=== PATIENT | male | born 1955 | race Caucasian/White ===

== ENCOUNTER 2017-08-31 10:35 | Observation (INO) | payer OTHER ==
[2017-08-31] MEDS ORDERED: Sodium Chloride 0.9% 10 ML Syringe FLUSH PRN ×2 (10:56→11:01)
[2017-08-31] MEDS ORDERED: Ondansetron 4 MG/2 ML SDV IVPUSH ONE (11:02)
[2017-08-31] MEDS ORDERED: Pantoprazole 40 MG Vial IVPUSH ONE (11:03)
--- NOTE | 2017-08-31 11:13 | EDM.PDOC ---
ED HPI GENERAL MEDICAL PROBLEM - General Chief Complaint: Abdominal Pain Stated Complaint: abd pain Time Seen by Provider: 08/31/17 10:45 Source of Information: Reports: Patient History Limitations: Reports: No Limitations - History of Present Illness INITIAL COMMENTS - FREE TEXT/NARRATIVE: Patient is a 62-year-old gentleman who presents to the ER with chief complaint of left lower quadrant pain started about 2 days ago states that the pain waxes and wanes, right now, feels pretty good denies pain on urination no fever complains of dry heaves. Also complains of generalized aches and pains Onset: Gradual Duration: Day(s):, Waxing/Waning Location: Reports: Abdomen Quality: Reports: Ache Worsens with: Reports: Eating Context: Reports: Sick Contact Associated Symptoms: Reports: No Other Symptoms, Other (Generalized body aches) Left Middle Abdomen Pain Score (Numeric/FACES): 5 - Related Data Allergies Allergy/AdvReac Type Severity Reaction Status Date / Time tuberculin, purified protein Allergy UNKNOWN Verified 08/31/17 11:02 deriva Home Meds: Home Meds Acetaminophen [Tylenol Extra Strength] 1,000 mg PO Q6HR PRN 11/13/13 [History] Calcium Carbonate [Tums] 3 tab PO ASDIRECTED PRN 11/13/13 [History] Cholecalciferol (Vitamin D3) [Vitamin D3] 2,000 unit PO DAILY 11/13/13 [History] Docusate Sodium [Colace] 100 mg PO DAILY PRN 11/13/13 [History] Folic Acid 1 mg PO QAM 11/13/13 [History] Gabapentin [Neurontin] 300 mg PO 1600 11/13/13 [History] Hydrochlorothiazide 25 mg PO DAILY 11/13/13 [History] Levothyroxine 25 mcg PO DAILY 11/13/13 [History] Lisinopril [Prinivil] 40 mg PO DAILY 11/13/13 [History] Loperamide HCl [Ultra A-D] 1 - 2 cap PO ASDIRECTED PRN 11/13/13 [History] [place]-3 Fatty Acids [[place]-3] 1,000 mg PO Q12H 11/13/13 [History] Omeprazole [Prilosec] 20 mg PO DAILY 11/13/13 [History] Sertraline [Zoloft] 100 mg PO DAILY 11/13/13 [History] Thiamine [Vitamin B-1] 100 mg PO DAILY 11/13/13 [History] amLODIPine [Norvasc] 5 mg PO BEDTIME 11/13/13 [History] atorvaSTATin [Lipitor] 10 mg PO BEDTIME 11/13/13 [History] glipiZIDE [Glucotrol] 10 mg PO BEDTIME 11/13/13 [History] guaiFENesin/Dextromethorphan [Tussin Dm Syrup] 10 ml PO ASDIRECTED PRN 11/13/13 [History] metFORMIN [Glucophage] 1,000 mg PO 08,16 11/13/13 [History] Bimatoprost [LUMIGAN 0.01% Ophth Soln] 1 drop EYEBOTH QPM 02/19/15 [History] Budesonide/Formoterol [Symbicort 160-4.5 MCG] 1 puff INH Q12H 02/19/15 [History] Dorzolamide [Trusopt 2% Ophth Soln] 1 drop EYEBOTH Q12H 02/19/15 [History] Atenolol [Tenormin] 25 mg PO Q12H 08/31/17 [History] Cetirizine [ZyrTEC] 10 mg PO BEDTIME 08/31/17 [History] Fenofibrate,Micronized [Fenofibrate] 200 mg PO BEDTIME 08/31/17 [History] Gabapentin [Neurontin] 600 mg PO 08,20 08/31/17 [History] Hydrocortisone [Hydrocortisone 1% Crm] 1 applic TOP BID PRN 08/31/17 [History] Insulin Glargine,Hum.Rec.Anlog [Lantus Solostar] 18 unit SQ DAILY 08/31/17 [ History] Insulin Glargine,Hum.Rec.Anlog [Lantus Solostar] 68 unit SQ BEDTIME 08/31/17 [ History] Mupirocin Oint [Bactroban Oint] 1 applic TOP BID PRN 08/31/17 [History] Petrolatum,White [Petroleum Jelly] 1 applic NASBOTH ASDIRECTED PRN 08/31/17 [ History] Social & Family History - Tobacco Use Smoking Status *Q: Current Every Day Smoker Years of Tobacco use: 45 Used Tobacco, but Quit: No Month Tobacco Last Used: UNKNOWN Second Hand Smoke Exposure: No - Alcohol Use Days Per Week of Alcohol Use: 0 (History of significant alcohol abuse) - Recreational Drug Use Recreational Drug Use: No Drug Use in Last 12 Months: Yes Recreational Drug Type: Reports: Vicodin (Chronic hydrocodone use) - Living Situation & Occupation Living situation: Reports: Extended Care Facility Occupation: Retired ED ROS GENERAL - Review of Systems Review Of Systems: See Below Constitutional: Reports: Weakness ED EXAM, GI/ABD - Physical Exam Exam: See Below Course - Vital Signs Last Recorded V/S: Last Vital Signs Temp 97.9 F 08/31/17 10:35 Pulse 84 08/31/17 10:35 Resp 22 H 08/31/17 10:35 BP 155/90 H 08/31/17 10:35 Pulse Ox 95 08/31/17 10:35 - Orders/Labs/Meds Orders: Active Orders 24 hr Category Date Time Status Abdomen Pelvis w Cont [CT] Stat Exams 08/31/17 11:03 Taken Sodium Chloride 0.9% [Saline Flush] Med 08/31/17 10:56 Active 10 ml FLUSH ASDIRECTED PRN Sodium Chloride 0.9% [Saline Flush] Med 08/31/17 11:01 Active 10 ml FLUSH ASDIRECTED PRN Saline Lock Insert [OM.PC] Routine Oth 08/31/17 10:56 Ordered Saline Lock Insert [OM.PC] Stat Oth 08/31/17 11:01 Ordered Medication Orders Sodium Chloride (Normal Saline) 1,000 mls @ 150 mls/hr IV ASDIRECTED KATHLEEN Last Admin: 08/31/17 13:43 Dose: 150 mls/hr Sodium Chloride (Saline Flush) 10 ml FLUSH ASDIRECTED PRN PRN Reason: Keep Vein Open Last Admin: 08/31/17 11:09 Dose: 10 ml Sodium Chloride (Saline Flush) 10 ml FLUSH ASDIRECTED PRN PRN Reason: Keep Vein Open Labs: Laboratory Tests 08/31/17 08/31/17 08/31/17 Range/Units 10:45 10:50 10:50 WBC 10.0 (4.0-10.2) K/uL RBC 4.92 (4.33-5.41) M/uL Hgb 17.4 H D (13.1-16.8) g/dL Hct 41.6 (39.0-49.0) % MCV 84.6 D (84.0-98.0) fL MCH 35.4 H (28.2-33.3) pg MCHC 41.8 H (31.7-36.0) g/dL RDW 13.9 (11.2-14.1) % Plt Count 200 (150-350) K/uL Neut % (Auto) 77.3 (45.0-80.0) % Lymph % (Auto) 7.3 L (10.0-50.0) % [place] % (Auto) 13.9 (2.0-14.0) % Eos % (Auto) 1.2 (0.0-5.0) % Baso % (Auto) 0.3 (0.0-2.0) % Neut # (Auto) 7.76 H (1.40-7.00) K/uL Lymph # (Auto) 0.73 (0.50-3.50) K/uL [place] # (Auto) 1.39 H (0.00-1.00) K/uL Eos # (Auto) 0.12 (0.00-0.50) K/uL Baso # (Auto) 0.03 (0.00-0.20) K/uL Sodium 132 L (136-145) mmol/L Potassium 4.1 (3.5-5.1) mmol/L Chloride 96 L (98-107) mmol/L Carbon Dioxide 19.7 L (21.0-32.0) mmol/L BUN 16 (7-18) mg/dL Creatinine 0.71 (0.51-1.17) mg/dL Est Cr Clr Drug Dosing 84.59 mL/min Estimated GFR (MDRD) > 60 mL/min Glucose 363 H* (74-106) mg/dL Calcium 9.4 (8.5-10.1) mg/dL Amylase 47 (25-115) U/L Lipase 682 H (73-393) U/L Specimen Type Urincc Urine Color Yellow Urine Appearance Clear Urine pH 6.5 (5.0-9.0) Ur Specific [place] 1.015 (1.005-1.030) Urine Protein Negative (NEGATIVE) mg/dL Urine Glucose (UA) 500 H (NEGATIVE) mg/dL Urine Ketones Negative (NEGATIVE) mg/dL Urine Occult Blood Trace-intact H (NEGATIVE) Urine Nitrite Negative (NEGATIVE) Urine Bilirubin Negative (NEGATIVE) Urine Urobilinogen 0.2 (0.2-1.0) E.U./dL Ur Leukocyte Esterase Negative (NEGATIVE) Urine RBC 0-5 /HPF Urine WBC 0-5 /HPF Ur Epithelial Cells Rare /LPF Urine Bacteria Rare (NONE TO FEW) /HPF Meds: Medications Generic Name Dose Route Start Last Admin Trade Name Freq PRN Reason Stop Dose Admin Sodium Chloride 1,000 mls @ 150 mls/hr 08/31/17 13:45 08/31/17 13:43 Normal Saline IV 150 mls/hr ASDIRECTED KATHLEEN Administration Sodium Chloride 10 ml 08/31/17 10:56 08/31/17 11:09 Saline Flush FLUSH 10 ml ASDIRECTED PRN Administration Keep Vein Open Sodium Chloride 10 ml 08/31/17 11:01 Saline Flush FLUSH ASDIRECTED PRN Keep Vein Open Discontinued Medications Generic Name Dose Route Start Last Admin Trade Name Freq PRN Reason Stop Dose Admin Iopamidol 100 ml 08/31/17 12:30 Isovue-370 (76%) IVPUSH 08/31/17 12:31 ONETIME ONE Ondansetron HCl 4 mg 08/31/17 11:02 08/31/17 11:08 Zofran IVPUSH 08/31/17 11:03 4 mg ONETIME ONE Administration Pantoprazole Sodium 40 mg 08/31/17 11:03 08/31/17 11:08 Protonix Iv IVPUSH 08/31/17 11:04 40 mg ONETIME ONE Administration Departure - Departure Time of Disposition: 14:09 Disposition: Refer to Observation Condition: Fair Clinical Impression: Pancreatitis, Abdominal pain - Discharge Information - Problem List & Annotations (1) IDDM (insulin dependent diabetes mellitus) SNOMED Code(s): 57008632 Code(s): E11.9 - TYPE 2 DIABETES MELLITUS WITHOUT COMPLICATIONS; Z79.4 - JAIL (CURRENT) USE OF INSULIN Status: Acute Priority: Medium Current Visit: No Annotation/Comment:: Blood sugars are related secondary to pancreatitis will control with insulin (2) Pancreatitis SNOMED Code(s): 54187760 Code(s): K85.9 - ACUTE PANCREATITIS, UNSPECIFIED * DO NOT USE * Status: Acute Priority: High Current Visit: No Onset Date: 02/15/15 Annotation/ Comment:: Patient's lipase elevated will admit for treatment of pancreatitis IV fluids will be provided clear liquid diet and pain control as needed discussed with Dr. Kim at the [facility] agreed that which her keep the patient for short stay no antibiotics at this time. (3) Hyponatremia SNOMED Code(s): 37974995 Code(s): E87.1 - HYPO-OSMOLALITY AND HYPONATREMIA Status: Acute Priority : High Current Visit: No Annotation/Comment:: Aggressively but carefully rehydrate patient with IV lactated Ringer's with IV bolus already given in the emergency room - Problem List Review Problem List Initiated/Reviewed/Updated: Yes - My Orders Last 24 Hours: My Active Orders 08/31/17 10:56 Sodium Chloride 0.9% [Saline Flush] 10 ml FLUSH ASDIRECTED PRN Saline Lock Insert [OM.PC] Routine 08/31/17 11:01 Sodium Chloride 0.9% [Saline Flush] 10 ml FLUSH ASDIRECTED PRN Saline Lock Insert [OM.PC] Stat 08/31/17 11:03 Abdomen Pelvis w Cont [CT] Stat - Assessment/Plan Admission H&P: Please use this note as an admission H&P Last 24 Hours: My Active Orders 08/31/17 10:56 Sodium Chloride 0.9% [Saline Flush] 10 ml FLUSH ASDIRECTED PRN Saline Lock Insert [OM.PC] Routine 08/31/17 11:01 Sodium Chloride 0.9% [Saline Flush] 10 ml FLUSH ASDIRECTED PRN Saline Lock Insert [OM.PC] Stat 08/31/17 11:03 Abdomen Pelvis w Cont [CT] Stat Plan: Patient will be admitted to hospital for 24-hour observation
[2017-08-31 11:17] LABS: CHLORIDE,CL 96 mmol/L (98-107); SODIUM,NA 132 mmol/L (136-145)
[2017-08-31] MEDS ORDERED: Iopamidol 755 Mg/ML 100 ML Bottle IVPUSH ONE (12:30)
[2017-08-31] MEDS: Sodium Chloride 0.9% 1,000 ML IV SCH ×2 (13:43→19:49)
[2017-08-31] MEDS ORDERED: Calcium Carbonate 500 MG Tab.Chew PO PRN (14:02)
[2017-08-31] MEDS ORDERED: HYDROCORTISONE TOP PRN (14:02)
[2017-08-31] MEDS ORDERED: Non-Formulary Medication 1 Each (Budesonide/Formoterol 1 PUFF) INH SCH (14:15)
[2017-08-31] MEDS: Acetaminophen 500 MG Tab PO PRN ×2 (15:04→21:07)
[2017-08-31] MEDS ORDERED: Non-Formulary Medication 1 Each (Bimatoprost 1 DROP) EYEBOTH SCH (18:00)
[2017-08-31] MEDS ORDERED: Loperamide 2 MG Tab PO ONE (19:32)
[2017-08-31] MEDS ORDERED: Loperamide 2 MG Tab PO PRN (19:33)
[2017-08-31] MEDS: DORZOLAMIDE 2% EYEBOTH SCH ×2 (19:45→19:47)
[2017-08-31] MEDS: BUDESONIDE INH SCH (19:46)
[2017-08-31] MEDS: FORMOTEROL INH SCH (19:46)
[2017-08-31] MEDS ORDERED: LUMIGAN EYE EYEBOTH SCH (20:00)
[2017-08-31] MEDS ORDERED: Cetirizine 10 MG Tab PO SCH (20:00)
[2017-08-31] MEDS ORDERED: INSULIN GLARGINE HUM REC ANLOG SQ SCH (20:00)
[2017-09-01] MEDS: Sodium Chloride 0.9% 1,000 ML IV SCH (02:30)
[2017-09-01] MEDS: BUDESONIDE INH SCH (07:57)
[2017-09-01] MEDS: FORMOTEROL INH SCH (07:57)
[2017-09-01] MEDS: DORZOLAMIDE 2% EYEBOTH SCH (07:58)
[2017-09-01] MEDS ORDERED: INSULIN GLARGINE HUM REC ANLOG 18 UNIT SQ SCH (08:00)
[2017-09-01] MEDS ORDERED: Omeprazole 20 MG Cap.CR PO SCH (08:00)
[2017-09-01] MEDS ORDERED: Levothyroxine 25 MCG Tab PO SCH (08:00)
[2017-09-01 11:21] VITALS: BP 147/87
--- NOTE | 2017-09-01 12:15 | PCM.DCSUM1 ---
Discharge Summary - Hospital Course Free Text/Narrative:: Patient is a 62-year-old who was admitted with acute pancreatitis IV fluids given patient tolerating pain well eating well we'll send him home today [facility] - Discharge Data Discharge Date: 09/01/17 Discharge Disposition: DC/Tfer to [facility] Condition: Good - Discharge Diagnosis/Problem(s) (1) IDDM (insulin dependent diabetes mellitus) SNOMED Code(s): 93435191 ICD Code: E11.9 - TYPE 2 DIABETES MELLITUS WITHOUT COMPLICATIONS; Z79.4 - HALFWAY (CURRENT) USE OF INSULIN Status: Acute Priority: Medium Current Visit: No Problem Details: Blood sugars are related secondary to pancreatitis will control with insulin (2) Pancreatitis SNOMED Code(s): 19561658 ICD Code: K85.9 - ACUTE PANCREATITIS, UNSPECIFIED * DO NOT USE * Status: Acute Priority: High Current Visit: Yes Onset Date: 02/15/15 Problem Details: Patient seen and evaluated diagnosed with pancreatitis doing great we' ll send him home he is to continue all his medications as before (3) Hyponatremia SNOMED Code(s): 76344352 ICD Code: E87.1 - HYPO-OSMOLALITY AND HYPONATREMIA Status: Acute Priority : High Current Visit: No Problem Details: Aggressively but carefully rehydrate patient with IV lactated Ringer's with IV bolus already given in the emergency room - Discharge Plan Home Medications: Home Meds Acetaminophen [Tylenol Extra Strength] 1,000 mg PO Q6HR PRN 11/13/13 [History] Calcium Carbonate [Tums] 3 tab PO ASDIRECTED PRN 11/13/13 [History] Cholecalciferol (Vitamin D3) [Vitamin D3] 2,000 unit PO DAILY 11/13/13 [History] Docusate Sodium [Colace] 100 mg PO DAILY PRN 11/13/13 [History] Folic Acid 1 mg PO QAM 11/13/13 [History] Gabapentin [Neurontin] 300 mg PO 1600 11/13/13 [History] Hydrochlorothiazide 25 mg PO DAILY 11/13/13 [History] Levothyroxine 25 mcg PO DAILY 11/13/13 [History] Lisinopril [Prinivil] 40 mg PO DAILY 11/13/13 [History] Loperamide HCl [Ultra A-D] 1 - 2 cap PO ASDIRECTED PRN 11/13/13 [History] [place]-3 Fatty Acids [[place]-3] 1,000 mg PO Q12H 11/13/13 [History] Omeprazole [Prilosec] 20 mg PO DAILY 11/13/13 [History] Sertraline [Zoloft] 100 mg PO DAILY 11/13/13 [History] Thiamine [Vitamin B-1] 100 mg PO DAILY 11/13/13 [History] amLODIPine [Norvasc] 5 mg PO BEDTIME 11/13/13 [History] atorvaSTATin [Lipitor] 10 mg PO BEDTIME 11/13/13 [History] glipiZIDE [Glucotrol] 10 mg PO BEDTIME 11/13/13 [History] guaiFENesin/Dextromethorphan [Tussin Dm Syrup] 10 ml PO ASDIRECTED PRN 11/13/13 [History] metFORMIN [Glucophage] 1,000 mg PO 08,16 11/13/13 [History] Bimatoprost [LUMIGAN 0.01% Ophth Soln] 1 drop EYEBOTH BEDTIME 02/19/15 [History] Budesonide/Formoterol [Symbicort 160-4.5 MCG] 1 puff INH Q12H 02/19/15 [History] Dorzolamide [Trusopt 2% Ophth Soln] 1 drop EYEBOTH Q12H 02/19/15 [History] Atenolol [Tenormin] 25 mg PO Q12H 08/31/17 [History] Cetirizine [ZyrTEC] 10 mg PO BEDTIME 08/31/17 [History] Fenofibrate,Micronized [Fenofibrate] 200 mg PO BEDTIME 08/31/17 [History] Gabapentin [Neurontin] 600 mg PO 08,20 08/31/17 [History] Hydrocortisone [Hydrocortisone 1% Crm] 1 applic TOP BID PRN 08/31/17 [History] Insulin Glargine,Hum.Rec.Anlog [Lantus Solostar] 18 unit SQ DAILY 08/31/17 [ History] Insulin Glargine,Hum.Rec.Anlog [Lantus Solostar] 68 unit SQ BEDTIME 08/31/17 [ History] Mupirocin Oint [Bactroban Oint] 1 applic TOP BID PRN 08/31/17 [History] Petrolatum,White [Petroleum Jelly] 1 applic NASBOTH ASDIRECTED PRN 08/31/17 [ History] Patient Handouts: Lipase Test, Acute Pancreatitis Forms: ED Department Discharge Referrals: Annalee Livingston PA [Primary Care Provider] - - General Info Date of Service: 09/01/17 Functional Status: Reports: Pain Controlled - Review of Systems General: Reports: No Symptoms HEENT: Reports: No Symptoms Pulmonary: Reports: No Symptoms Cardiovascular: Reports: No Symptoms Gastrointestinal: Reports: Constipation Genitourinary: Reports: No Symptoms Musculoskeletal: Reports: No Symptoms Skin: Reports: No Symptoms Neurological: Reports: No Symptoms Psychiatric: Reports: No Symptoms - Patient Data Vitals - Most Recent: Last Vital Signs Temp 97.2 F 09/01/17 11:20 Pulse 94 09/01/17 11:20 Resp 16 09/01/17 04:00 BP 147/87 H 09/01/17 11:20 Pulse Ox 92 L 09/01/17 11:20 Weight - Most Recent: 212 lb 4.8 oz I&O - Last 24 hours: Intake & Output 08/31/17 09/01/17 09/01/17 22:59 06:59 14:59 Intake Total 2875 710 Output Total 1200 1250 Balance -1200 1625 710 Lab Results - Last 24 hrs: Laboratory Results - last 24 hr 08/31/17 08/31/17 09/01/17 Range/Units 16:59 19:51 07:54 POC Glucose 195 H 277 H* 188 H (65-110) mg/dl 09/01/17 Range/Units 11:20 POC Glucose 279 H* (65-110) mg/dl Med Orders - Current: Current Medications Acetaminophen (Tylenol Extra Strength) 1,000 mg PO Q6HR PRN PRN Reason: Pain Last Admin: 08/31/17 21:07 Dose: 1,000 mg Calcium Carbonate/Glycine (Tums) 0 mg PO ASDIRECTED PRN PRN Reason: Heartburn Cetirizine HCl (Zyrtec) 10 mg PO BEDTIME KATHLEEN Last Admin: 08/31/17 19:46 Dose: 10 mg Dorzolamide HCl (Trusopt 2% Ophth Soln) 0 ml EYEBOTH BID@0800,2000 KATHLEEN Last Admin: 09/01/17 07:58 Dose: 1 drop Levothyroxine Sodium (Levothyroxine) 25 mcg PO DAILY [facility] Last Admin: 09/01/17 08:02 Dose: 25 mcg Loperamide HCl (Imodium Ad) 2 mg PO Q6H PRN PRN Reason: Diarrhea Non-Formulary Medication (Hydrocortisone [Hydrocortisone 1% Crm]) 1 applic TOP BID PRN PRN Reason: Itching Patients Own Med ( Insulin Glargine,Hum .Rec.Anlog 18 Unit) 18 unit SQ DAILY [facility] Last Admin: 09/01/17 07:56 Dose: 18 unit Patients Own Med ( Insulin Glargine,Hum .Rec.Anlog 68 Unit) 68 unit SQ BEDTIME [facility] Last Admin: 08/31/17 19:51 Dose: 68 unit Patients Own Med( Budesonide/Formoterol Symbicort 160/4.5 Mg 1 puff INH Q12H [facility] Last Admin: 09/01/17 07:57 Dose: 1 puff Patients Own Med ([place] Eye Drops) 1 drop EYEBOTH BEDTIME [facility] Last Admin: 08/31/17 19:47 Dose: 1 drop Omeprazole (Omeprazole) 20 mg PO DAILY [facility] Last Admin: 09/01/17 08:02 Dose: 20 mg Sodium Chloride (Saline Flush) 10 ml FLUSH ASDIRECTED PRN PRN Reason: Keep Vein Open Last Admin: 08/31/17 11:09 Dose: 10 ml Sodium Chloride (Saline Flush) 10 ml FLUSH ASDIRECTED PRN PRN Reason: Keep Vein Open Discontinued Medications Sodium Chloride (Normal Saline) 1,000 mls @ 150 mls/hr IV ASDIRECTED [facility] Last Admin: 09/01/17 02:30 Dose: 150 mls/hr Iopamidol (Isovue-370 (76%)) 100 ml IVPUSH ONETIME ONE Stop: 08/31/17 12:31 Last Admin: 08/31/17 19:50 Dose: Not Given Loperamide HCl (Imodium Ad) 4 mg PO ONETIME ONE Stop: 08/31/17 19:33 Last Admin: 08/31/17 19:46 Dose: 4 mg Non-Formulary Medication (Bimatoprost) 1 drop EYEBOTH QPM [facility] Non-Formulary Medication (Budesonide/Formoterol) 1 puff INH Q12H KATHLEEN Ondansetron HCl (Zofran) 4 mg IVPUSH ONETIME ONE Stop: 08/31/17 11:03 Last Admin: 08/31/17 11:08 Dose: 4 mg Pantoprazole Sodium (Protonix Iv) 40 mg IVPUSH ONETIME ONE Stop: 08/31/17 11:04 Last Admin: 08/31/17 11:08 Dose: 40 mg - Exam General: Reports: Alert, Oriented HEENT: Reports: Pupils Equal, Pupils Reactive, EOMI, Mucous Membr. Moist/[place] Neck: Reports: Supple Lungs: Reports: Clear to Auscultation, Normal Respiratory Effort Cardiovascular: Reports: Regular Rate, Regular Rhythm GI/Abdominal Exam: Normal Bowel Sounds, Soft, Non-Tender, No Organomegaly, No Distention, No Abnormal Bruit, No Mass, Pelvis Stable (Male) Exam: No Hernia, Normal Inspection, Normal Prostate, Circumcised Rectal (Males) Exam: Deferred Back Exam: Reports: Normal Inspection, Decreased Range of Motion Extremities: Normal Inspection, Normal Range of Motion, Non-Tender, No Pedal Edema, Normal Capillary Refill Skin: Reports: Warm, Dry, Intact Neurological: Reports: No New Focal Deficit *Q Meaningful Use (DIS) - VTE *Q VTE Criteria *Q: - Stroke *Q Stroke Criteria *Q: - AMI *Q AMI Criteria *Q:
== END 2017-09-01 13:05 ==
LOC: LL.ED 10:35 → LL.MS 13:30
PROVIDERS: ADMIT Family Medicine; ATTEND Family Medicine
DX: K85.90 Acute pancreatitis without necrosis or infection, unspecified (principal); K86.1 Other chronic pancreatitis; E87.1 Hypo-osmolality and hyponatremia; E11.9 Type 2 diabetes mellitus without complications; F17.210 Nicotine dependence, cigarettes, uncomplicated; Z79.4 Long term (current) use of insulin; Z79.899 Other long term (current) drug therapy; Z88.8 Allergy status to other drugs, medicaments and biological substances
CPT/HCPCS: 36415; 74177; 80048; 81001; 82150; 82962; 83690; 85025; 96374; 96375; 99285; A9270; C9113; J2405; J7030; J7050; Q9967; 96361; G0378

== ENCOUNTER 2018-04-25 00:17 | Emergency (ER) | payer OTHER ==
--- NOTE | 2018-04-25 00:37 | EDM.PDOC ---
ED HPI GENERAL MEDICAL PROBLEM - General Chief Complaint: Abdominal Pain Stated Complaint: ABD pain Time Seen by Provider: 04/25/18 00:30 Source of Information: Reports: Patient, Long Term Records, Old Records ([facility] chart/EMR) History Limitations: Reports: Altered Mental Status - History of Present Illness INITIAL COMMENTS - FREE TEXT/NARRATIVE: The patient was brought to the emergency room via transport vehicle from [facility] in [place] for evaluation of bilateral upper quadrant abdominal pain associated with 3 loose stools this evening and about 12 episodes of mild emesis/dry heaves with symptoms starting at about 20:00 hours this evening after he took his evening medications. His symptoms are similar to his previous episodes of recurrent pancreatitis as below. He did not take any additional medications for his current symptoms. No recent history of heartburn , constipation, hematemesis, melena, gross hematochezia, or any food intolerance , including fatty foods, etc.. He denies any colic, gross hematuria, or other UTI symptoms. The patient denies any chest pain/pressure, heart flutter, dizziness, orthostasis, orthopnea, diaphoresis, paresthesias, recent decreased exercise tolerance, or any other anginal-type symptoms. The patient also denies any recent fever, cough, wheezing, dyspnea, etc.. No history of recent headaches , visual changes, diplopia, change in mental status, or other change in neurological status. He rates his pain ranging between 4-8/10. Patient is a somewhat poor historian. Onset: Sudden Onset Date: 04/24/18 Onset Time: 20:00 Duration: Constant, Getting Worse Location: Reports: Abdomen. Denies: Head, Face, Neck, Chest, Back, Pelvis, Upper Extremity, Left, Upper Extremity, Right, Radiates to Quality: Reports: Ache, Same as Previous Episode Severity: Moderate Improves with: Reports: None Worsens with: Reports: None Context: Reports: Other (As above). Denies: Sick Contact Associated Symptoms: Reports: Nausea/Vomiting. 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: Other (see below) (None other than his evening medications as above) Bilateral Upper Abdomen Pain Score (Numeric/FACES): 8 - Related Data Allergies Allergy/AdvReac Type Severity Reaction Status Date / Time tuberculin, purified protein Allergy Redness Verified 04/25/18 00:32 deriva Home Meds: Home Meds Acetaminophen [Tylenol Extra Strength] 1,000 mg PO BID@08,20 11/13/13 [History] Calcium Carbonate [Tums] 2 tab PO ASDIRECTED PRN 11/13/13 [History] Cholecalciferol (Vitamin D3) [Vitamin D3] 2,000 unit PO DAILY 11/13/13 [History] Docusate Sodium [Colace] 100 mg PO DAILY PRN 11/13/13 [History] Folic Acid 1 mg PO QAM 11/13/13 [History] Gabapentin [Neurontin] 300 mg PO DAILY@1600 11/13/13 [History] Hydrochlorothiazide 25 mg PO DAILY 11/13/13 [History] Levothyroxine 25 mcg PO DAILY 11/13/13 [History] Lisinopril [Prinivil] 40 mg PO DAILY 11/13/13 [History] Loperamide HCl [Ultra A-D] 1 - 2 cap PO ASDIRECTED PRN 11/13/13 [History] Omeprazole [Prilosec] 20 mg PO DAILY 11/13/13 [History] Sertraline [Zoloft] 100 mg PO DAILY 11/13/13 [History] Thiamine [Vitamin B-1] 100 mg PO DAILY 11/13/13 [History] amLODIPine [Norvasc] 5 mg PO BEDTIME 11/13/13 [History] atorvaSTATin [Lipitor] 10 mg PO BEDTIME 11/13/13 [History] glipiZIDE [Glucotrol] 10 mg PO BEDTIME 11/13/13 [History] guaiFENesin/Dextromethorphan [Tussin Dm Syrup] 10 ml PO ASDIRECTED PRN 11/13/13 [History] metFORMIN [Glucophage] 1,000 mg PO 08,16 11/13/13 [History] Bimatoprost [LUMIGAN 0.01% Ophth Soln] 1 drop EYEBOTH BEDTIME 02/19/15 [History] Budesonide/Formoterol [Symbicort 160-4.5 MCG] 1 puff INH Q12H 02/19/15 [History] Dorzolamide [Trusopt 2% Ophth Soln] 1 drop EYEBOTH Q12H 02/19/15 [History] Atenolol [Tenormin] 25 mg PO Q12H 08/31/17 [History] Cetirizine [ZyrTEC] 10 mg PO BEDTIME 08/31/17 [History] Fenofibrate,Micronized [Fenofibrate] 200 mg PO BEDTIME 08/31/17 [History] Gabapentin [Neurontin] 600 mg PO BID@08,20 08/31/17 [History] Hydrocortisone [Hydrocortisone 1% Crm] 1 applic TOP BID PRN 08/31/17 [History] Insulin Glargine,Hum.Rec.Anlog [Lantus Solostar] 18 unit SQ DAILY 08/31/17 [ History] Insulin Glargine,Hum.Rec.Anlog [Lantus Solostar] 72 unit SQ BEDTIME 08/31/17 [ History] Mupirocin Oint [Bactroban Oint] 1 applic TOP BID PRN 08/31/17 [History] Petrolatum,White [Petroleum Jelly] 1 applic NASBOTH ASDIRECTED PRN 08/31/17 [ History] Acetaminophen [Tylenol Extra Strength] 1,000 mg PO DAILY PRN 04/25/18 [History] Albuterol/Ipratropium [DuoNeb 3.0-0.5 MG/3 ML] 1 vial INH Q4H PRN 04/25/18 [ History] Potassium Chloride [Klor-Con M20] 20 meq PO BID@08,20 04/25/18 [History] Past Medical History HEENT History: Reports: Allergic Rhinitis, Cataract, Glaucoma, Hard of Hearing, Impaired Vision, Other (See Below). Denies: Macular Degeneration, Retinal Detachment Other HEENT History: Patient wears bifocals. Mild bilateral presbycusis with no current therapy. Nasal septum deviation. Cardiovascular History: Reports: Aneurysm, High Cholesterol, Hypertension, PVD, Other (See Below). Denies: Afib, Arrhythmia, Blood Clots/VTE/DVT, CAD, Heart Failure, GA, Syncope Other Cardiovascular History: Thoracic aortic aneurysm Respiratory History: Reports: Bronchitis, Recurrent, COPD, Pulmonary Fibrosis, Sleep Apnea, Other (See Below). Denies: Asthma, PE, Pneumothorax Other Respiratory History: No current CPAP use. Gastrointestinal History: Reports: Bowel Obstruction, Chronic Constipation, Chronic Diarrhea, Diverticulosis, GERD, Hemorrhoids, Hiatal Hernia, Pancreatitis , Other (See Below). Denies: Celiac Disease, Cholelithiasis, Cirrhosis, Colon Polyp, GI Bleed, Hepatitis, Inflammatory Bowel Disease, Irritable Bowel Syndrome , PUD Other Gastrointestinal History: History of recurrent pancreatitis with pancreatic pseudocyst with last episodes on 08/31/17 and 02/16/15. Fatty liver with secondary LFTs elevation. Gilbert's syndrome. History of recurrent abdominal ileus. Multiple ventral abdominal fatty hernias. Splenic infarction. Dysphagia. Genitourinary History: Reports: BPH, Chronic Renal Insuffiency, Diabetic Nephropathy, Other (See Below). Denies: Acute Renal Failure, Renal Calculus, STD, Urinary Incontinence, UTI, Recurrent Other Genitourinary History: Bladder diverticuli by CT scan. Right renal cysts by ultrasound in 2017. Musculoskeletal History: Reports: Arthritis, Back Pain, Chronic, Gout, Osteoarthritis, Other (See Below). Denies: Amputation, Fracture, RA, SLE Other Musculoskeletal History: Scoliosis Neurological History: Reports: Neuropathy, Diabetic, Neuropathy, Peripheral. Denies: Alzheimers Disease, Cerebral Aneurysms, Concussion, CVA, Headaches, Chronic, Head Trauma, Migraines, MS, Parkinson's, Seizure, TIA Psychiatric History: Reports: Addiction, Anxiety, Depression, Emotional Problems , Psych Hospitalization(s), Suicide Attempt, Suicidal Ideation, Other (See Below ). Denies: Abuse, Victim of, ADD, ADHD, Alzheimers Disease, Dementia, PTSD Other Psychiatric History: transvestic fetishism, history ETOH alcohol use between age 17 and 46 with previous multiple alcohol treatments Endocrine/Metabolic History: Reports: Diabetes, Type II, Hypothyroidism, IDDM, Obesity/BMI 30+, Vitamin D Deficiency, Other (See Below). Denies: Diabetes, Type I, Diabetes Mellitus, Type 3c Other Endocrine/Metabolic History: Hyponatremia and hypokalemia. Hematologic History: Reports: Anemia, Folic Acid. Denies: Blood Transfusion(s) , Iron Deficiency Immunologic History: Reports: None. Denies: AIDS, HIV, SLE Oncologic (Cancer) History: Denies: Basal Cell Carcinoma, Colon, Hodgkin's Lymphoma, Leukemia, Lymphoma, Malignant Melanoma, Non-Hodgkin's Lymphoma, Prostate, Squamous Cell Carcinoma Dermatologic History: Reports: Venous Stasis Dermatitis, Other (See Below). Denies: Eczema, Psoriasis Other Dermatologic History: Lichen Simplex Chronicus, follicular disorder. Actinic keratosis. - Infectious Disease History Infectious Disease History: Reports: None. Denies: C-Difficile, Chicken Pox, Measles, Meningitis, Mononucleosis, MRSA, Mumps, Rheumatic Fever, Rubella, Scarlet Fever, Shingles, VRE - Past Surgical History Head Surgeries/Procedures: Reports: None HEENT Surgical History: Reports: Cataract Surgery, LASIK, Oral Surgery, Other ( See Below). Denies: Adenoidectomy, Eye Surgery, Laser Surgery, Myringotomy w Tube(s), Naso-Sinus Surgery, Tonsillectomy Other HEENT Surgeries/Procedures: bilateral cataract surgery in about 2015 with patient stating that he had LASIK surgery concurrently despite separate cataract procedures? Cardiovascular Surgical History: Reports: None. Denies: Varicose Respiratory Surgical History: Reports: None. Denies: Thoracentesis GI Surgical History: Reports: Colonoscopy, EGD, Hernia, Inguinal, Other (See Below). Denies: Appendectomy, Cholecystectomy, Hernia, Abdominal, Hernia Repair /Other Other GI Surgeries/Procedures: Colonoscopy and EGD in about 2012. Umbilical hernia repair in about 1999. Male Surgical History: Reports: None. Denies: Vasectomy Endocrine Surgical History: Reports: None Neurological Surgical History: Reports: None. Denies: C-Spine, Discectomy, Laminectomy, Lumbar Spine, Sacral Spine, Spinal Fusion, Thoracic Spine, Vertebroplasty Musculoskeletal Surgical History: Reports: None. Denies: Arthroscopic Procedure , Carpal Tunnel, Ganglion Cyst, Joint Replacement, ORIF, Shoulder Surgery Oncologic Surgical History: Reports: None Dermatological Surgical History: Reports: None - Past Imaging History Past Imaging History: Reports: CAT Scan (CT scan of the chest, abdomen, and pelvis on 02/16/15. Last CT of the abdomen and pelvis on 08/31/17.), Ultrasound ( Abdominal ultrasound on 01/17/17 area) Social & Family History - Tobacco Use Smoking Status *Q: Current Every Day Smoker Tobacco Use Within Last Twelve Months: Other (See Below) (E cigarettes) Years of Tobacco use: 50 Packs/Tins Daily: 1.5 Packs/Tins Daily Comment: Cigarette use of 1.5-2 packs per day between ages 11 and 61 Used Tobacco, but Quit: Yes Smoking Cessation Information Provided To Patient: No Second Hand Smoke Education Provided: No - Caffeine Use Caffeine Use: Reports: Coffee (1 cup per day), Soda (2 sodas per day). Denies: Energy Drinks, Tea - Alcohol Use Alcohol Use History: Yes Days Per Week of Alcohol Use: 0 - Recreational Drug Use Recreational Drug Use: Yes Drug Use in Last 12 Months: No Recreational Drug Type: Reports: Marijuana/Hashish (Marijuana experimentation at age 18). 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 ED EXAM, GI/ABD - Physical Exam Exam: See Below Exam Limited By: No Limitations General Appearance: Alert, WD/WN, No Apparent Distress Eyes: Bilateral: Normal Appearance (No nystagmus), EOMI (PERRLA) Ears: Normal External Exam, Normal Canal, Normal TMs, Hearing Loss (Mild bilateral presbycusis.) Nose: Normal Inspection, Normal Mucosa, No Blood Throat/Mouth: Normal Lips, Normal Gums, Normal Oropharynx, Normal Voice, No Airway Compromise. No: Normal Teeth (Complete absent dentition with the patient not having his dentures today), Dysphagia, Perioral Cyanosis Head: Atraumatic, Normocephalic. No: Facial Swelling, Facial Tenderness, Sinus Tenderness Neck: Normal Inspection, Supple, Non-Tender, Full Range of Motion. No: Carotid Bruit, Lymphadenopathy (L), Lymphadenopathy (R), Thyromegaly Respiratory/Chest: No Respiratory Distress, Lungs Clear, Normal Breath Sounds, No Accessory Muscle Use, Chest Non-Tender. No: Pleural Rub, Retractions Cardiovascular: Normal Peripheral Pulses, Regular Rate, Rhythm, No Edema, No Gallop, No JVD, No Murmur, No Rub. No: Gallop/S3, Gallop/S4, Friction Rub GI/Abdominal Exam: Normal Bowel Sounds, Soft, No Organomegaly, No Distention, No Abnormal Bruit, No Mass, Pelvis Stable, Tender (Borderline Mild bilateral upper quadrant palpation pain), Other (Obese. Mild ecchymosis in abdominal region secondary to insulin injections.). No: Guarding, Rebound (Male) Exam: Deferred Rectal (Males) Exam: Normal Rectal Tone, BPH (Mild to moderate), Heme - Stool, Hemorrhoids (Grade 2 internal/external hemorrhoids). No: Fecal Impaction ( Minimal stool in rectal vault), Prostate Nodule, Tenderness (No Pete space tenderness) Back Exam: Normal Inspection, Full Range of Motion. No: CVA Tenderness (L), CVA Tenderness (R), Muscle Spasm Extremities: Normal Inspection, Normal Range of Motion, Non-Tender, No Pedal Edema, Normal Capillary Refill, Other (Bilateral venous stasis dermatitis in the anterior tibial regions). No: Deb's Sign Neurological: Alert, Oriented, CN II-XII Intact, Normal Cognition, Normal Gait, Normal Reflexes (Negative Babinski's), No Motor/Sensory Deficits Psychiatric: Normal Affect, Normal Mood Skin Exam: Warm, Dry, Intact, Normal Color, No Rash, Ecchymosis (As above). No : Diaphoretic, Wound/Incision Lymphatic: No Adenopathy Course - Vital Signs Last Recorded V/S: Last Vital Signs Temp 36.9 C 04/25/18 00:29 Pulse 87 04/25/18 02:07 Resp 18 04/25/18 02:07 BP 138/88 04/25/18 02:07 Pulse Ox 92 L 04/25/18 02:07 Vital Signs - 24 hr 04/25/18 04/25/18 04/25/18 00:29 01:19 01:24 Temperature [ 36.9 C Temporal] Pulse, 94 91 88 Peripheral [ Pulse Oximetry] Respiratory 18 17 17 Rate Blood Pressure 137/78 132/80 130/80 [Left Upper Arm ] O2 Sat by Pulse 95 95 93 L Oximetry 04/25/18 04/25/18 04/25/18 01:39 02:01 02:07 Temperature [ Temporal] Pulse, 88 88 87 Peripheral [ Pulse Oximetry] Respiratory 17 17 18 Rate Blood Pressure 134/76 120/80 138/88 [Left Upper Arm ] O2 Sat by Pulse 94 L 93 L 92 L Oximetry - Orders/Labs/Meds Orders: Active Orders 24 hr Category Date Time Status Peripheral IV Care [RC] . DIRECTED Care 04/25/18 00:37 Active Abdomen Series w Chest 1V [CR] Stat Exams 04/25/18 00:37 Taken OCCULT BLOOD DIAGNOSTIC [OP] Stat Lab 04/25/18 00:37 Ordered Obtain Past Medical Record [OM.PC] Urgent Oth 04/25/18 00:37 Active Peripheral IV Insertion Adult [OM.PC] Stat Oth 04/25/18 00:37 Ordered Resuscitation Status Stat Resus Stat 04/25/18 00:37 Ordered Labs: Laboratory Tests 04/25/18 04/25/18 04/25/18 Range/Units 00:50 00:50 00:50 WBC 9.6 (4.0-10.2) K/uL RBC 4.67 (4.33-5.41) M/uL Hgb 14.8 D (13.1-16.8) g/dL Hct 41.4 (39.0-49.0) % MCV 88.7 D (84.0-98.0) fL MCH 31.7 (28.2-33.3) pg MCHC 35.7 (31.7-36.0) g/dL RDW 13.8 (11.2-14.1) % Plt Count 141 L (150-350) K/uL Neut % (Auto) 72.9 (45.0-80.0) % Lymph % (Auto) 16.5 (10.0-50.0) % Beadle % (Auto) 7.6 (2.0-14.0) % Eos % (Auto) 2.7 (0.0-5.0) % Baso % (Auto) 0.3 (0.0-2.0) % Neut # (Auto) 7.02 H (1.40-7.00) K/uL Lymph # (Auto) 1.59 (0.50-3.50) K/uL Beadle # (Auto) 0.73 (0.00-1.00) K/uL Eos # (Auto) 0.26 (0.00-0.50) K/uL Baso # (Auto) 0.03 (0.00-0.20) K/uL PT 10.7 (9.8-11.7) SEC INR 1.0 APTT 25.1 (22.1-29.8) SEC Sodium (136-145) mmol/L Potassium (3.5-5.1) mmol/L Chloride (98-107) mmol/L Carbon Dioxide (21.0-32.0) mmol/L BUN (7-18) mg/dL Creatinine (0.51-1.17) mg/dL Est Cr Clr Drug Dosing mL/min Estimated GFR (MDRD) mL/min Glucose (74-106) mg/dL Lactic Acid (0.4-2.0) mmol/L Uric Acid (2.6-7.2) mg/dL Calcium (8.5-10.1) mg/dL Magnesium (1.8-2.4) mg/dL Total Bilirubin (0.2-1.0) mg/dL AST (15-37) U/L ALT (12-78) U/L Alkaline Phosphatase (46-116) IU/L Total Protein (6.4-8.2) g/dL Albumin (3.4-5.0) g/dL Amylase 93 (25-115) U/L Lipase (73-393) U/L Ethyl Alcohol (0.000-0.080) g/dL 04/25/18 04/25/18 Range/Units 00:50 00:50 WBC (4.0-10.2) K/uL RBC (4.33-5.41) M/uL Hgb (13.1-16.8) g/dL Hct (39.0-49.0) % MCV (84.0-98.0) fL MCH (28.2-33.3) pg MCHC (31.7-36.0) g/dL RDW (11.2-14.1) % Plt Count (150-350) K/uL Neut % (Auto) (45.0-80.0) % Lymph % (Auto) (10.0-50.0) % Beadle % (Auto) (2.0-14.0) % Eos % (Auto) (0.0-5.0) % Baso % (Auto) (0.0-2.0) % Neut # (Auto) (1.40-7.00) K/uL Lymph # (Auto) (0.50-3.50) K/uL Beadle # (Auto) (0.00-1.00) K/uL Eos # (Auto) (0.00-0.50) K/uL Baso # (Auto) (0.00-0.20) K/uL PT (9.8-11.7) SEC INR APTT (22.1-29.8) SEC Sodium 131 L (136-145) mmol/L Potassium 3.8 (3.5-5.1) mmol/L Chloride 96 L (98-107) mmol/L Carbon Dioxide 24.8 (21.0-32.0) mmol/L BUN 27 H (7-18) mg/dL Creatinine 1.44 H (0.51-1.17) mg/dL Est Cr Clr Drug Dosing 41.71 mL/min Estimated GFR (MDRD) 49 mL/min Glucose 338 H (74-106) mg/dL Lactic Acid 1.9 (0.4-2.0) mmol/L Uric Acid 4.4 (2.6-7.2) mg/dL Calcium 9.1 (8.5-10.1) mg/dL Magnesium 1.7 L (1.8-2.4) mg/dL Total Bilirubin 0.6 (0.2-1.0) mg/dL AST 19 (15-37) U/L ALT 28 (12-78) U/L Alkaline Phosphatase 71 (46-116) IU/L Total Protein 7.8 (6.4-8.2) g/dL Albumin 3.9 (3.4-5.0) g/dL Amylase (25-115) U/L Lipase 1768 H (73-393) U/L Ethyl Alcohol 0.000 (0.000-0.080) g/dL Meds: Medications Discontinued Medications Generic Name Dose Route Start Last Admin Trade Name Freq PRN Reason Stop Dose Admin Famotidine 40 mg 04/25/18 00:37 04/25/18 01:02 Pepcid IVPUSH 04/25/18 00:38 40 mg ONETIME ONE Administration Lactated Ringer's 1,000 mls @ 999 mls/hr 04/25/18 00:37 04/25/18 01:02 Ringers, Lactated IV 04/25/18 01:37 999 mls/hr .BOLUS ONE Administration Lactated Ringer's 1,000 mls @ 100 mls/hr 04/25/18 02:15 04/25/18 02:07 Ringers, Lactated IV 100 mls/hr ASDIRECTED KATHLEEN Administration Ondansetron HCl 4 mg 04/25/18 00:37 04/25/18 01:02 Zofran IVPUSH 04/25/18 00:38 4 mg ONETIME ONE Administration Pantoprazole Sodium 40 mg 04/25/18 00:37 04/25/18 01:02 Protonix Iv IVPUSH 04/25/18 00:38 40 mg ONETIME ONE Administration Sodium Chloride 10 ml 04/25/18 00:37 04/25/18 01:02 Saline Flush FLUSH 10 ml ASDIRECTED PRN Administration Keep Vein Open - Radiology Interpretation Free Text/Narrative:: Acute abdominal x-rays shows evidence of moderate COPD with mild prominence of the proximal aortic arch, however no pulmonary infiltrates, cardiomegaly, CHF, pneumothorax, free air, ileus, obstruction, fluid levels, etc. Moderate osteoarthritic changes including bilateral coxarthrosis with additional mild scoliosis present. Departure - Departure Time of Disposition: 02:23 Disposition: DC/Tfer to [facility] 02 Condition: Good Clinical Impression: IDDM (insulin dependent diabetes mellitus), Hyponatremia, Sleep apnea, Hypomagnesemia, Renal insufficiency, Mixed anxiety depressive disorder, Hypothyroidism (acquired) COPD (chronic obstructive pulmonary disease) Qualifiers: COPD type: emphysema Emphysema type: panlobular Qualified Code(s): J43.1 - Panlobular emphysema Hyperlipidemia Qualifiers: Hyperlipidemia type: mixed hyperlipidemia Qualified Code(s): E78.2 - Mixed hyperlipidemia Hypertension Qualifiers: Hypertension type: essential hypertension Qualified Code(s): I10 - Essential ( primary) hypertension Osteoarthritis Qualifiers: Osteoarthritis location: multiple joints Osteoarthritis type: primary Qualified Code(s): M15.0 - Primary generalized (osteo)arthritis Pancreatitis Qualifiers: Chronicity: acute Pancreatitis type: other Acute pancreatitis complication: unspecified Qualified Code(s): K85.80 - Other acute pancreatitis without necrosis or infection - Discharge Information Referrals: Annalee Livingston PA [Primary Care Provider] - Forms: ED Department Discharge, Interfacility Transfer EMTALA - Problem List & Annotations (1) Pancreatitis SNOMED Code(s): 66239084 Code(s): K85.90 - ACUTE PANCREATITIS WITHOUT NECROSIS OR INFECTION, UNSP Status: Acute Priority: High Onset Date: 04/25/18 Annotation/Comment:: Recurrent pancreatitis as above. Telephone consultation at 01:[address] Pro, hospitalist at the [facility] in [place], who does accept the patient for direct admission into their facility with no further treatment recommendations given. Patient given high-dose IV Pepcid and IV Protonix mainly upon arrival to the emergency room. IV fluids were also initiated including initial 1 L IV bolus of lactated Ringer's. Continue LR during transport. Consider repeat CT scan of the abdomen and pelvis depending on his clinical course. 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 Patient kept nothing by mouth. Note history of severe dyslipidemia as below. Also normal alcohol level today. Qualifiers: Chronicity: acute Pancreatitis type: other Acute pancreatitis complication: unspecified Qualified Code(s): K85.80 - Other acute pancreatitis without necrosis or infection (2) Hyponatremia SNOMED Code(s): 81951762 Code(s): E87.1 - HYPO-OSMOLALITY AND HYPONATREMIA Status: Chronic Priority: High Annotation/Comment:: Known history of previous hyponatremia. Observe for now. IV lactated Ringer's given in the emergency room and in route to [place] as above. (3) Sleep apnea SNOMED Code(s): 88254258 Code(s): G47.30 - SLEEP APNEA, UNSPECIFIED Status: Acute Priority: Medium Annotation/Comment:: Patient has been noncompliant with his CPAP. (4) IDDM (insulin dependent diabetes mellitus) SNOMED Code(s): 76947986 Code(s): E11.9 - TYPE 2 DIABETES MELLITUS WITHOUT COMPLICATIONS; Z79.4 - INSPECTOR WATCH PARTS (CURRENT) USE OF INSULIN Status: Chronic Priority: Medium Annotation/Comment:: Elevated random glucose today. Consider glycosylated hemoglobin, sliding scale, etc. by accepting physician (5) COPD (chronic obstructive pulmonary disease) SNOMED Code(s): 70832032 Code(s): J44.9 - CHRONIC OBSTRUCTIVE PULMONARY DISEASE, UNSPECIFIED Status : Acute Priority: Medium Annotation/Comment:: No recent fever or bronchitic- type symptoms. Qualifiers: COPD type: emphysema Emphysema type: panlobular Qualified Code(s): J43.1 - Panlobular emphysema (6) Hypertension SNOMED Code(s): 05252322 Code(s): I10 - ESSENTIAL (PRIMARY) HYPERTENSION Status: Acute Priority: Medium Annotation/Comment:: Blood pressures stable in the emergency room Qualifiers: Hypertension type: essential hypertension Qualified Code(s): I10 - Essential (primary) hypertension (7) Hyperlipidemia SNOMED Code(s): 08175182 Code(s): E78.5 - HYPERLIPIDEMIA, UNSPECIFIED Status: Acute Priority: High Annotation/Comment:: Known dyslipidemia and severely lipemic serum, which may be partial etiology to his recurrent pancreatitis. Note IDDM currently under poor control based today's random blood sugar. Further medication changes, dietary consultation, etc. per accepting physicians. Qualifiers: Hyperlipidemia type: mixed hyperlipidemia Qualified Code(s): E78.2 - Mixed hyperlipidemia (8) Hypomagnesemia SNOMED Code(s): 519582938 Code(s): E83.42 - HYPOMAGNESEMIA Status: Chronic Priority: Medium Annotation/Comment:: Consider magnesium oxide supplementation. (9) Renal insufficiency SNOMED Code(s): 847097737, 964801391 Code(s): N28.9 - DISORDER OF KIDNEY AND URETER, UNSPECIFIED Status: Chronic Priority: Medium Annotation/Comment:: Stable mild diabetic nephropathy. Continue to observe closely secondary to his pancreatitis. (10) Mixed anxiety depressive disorder SNOMED Code(s): 092520537 Code(s): F41.8 - OTHER SPECIFIED ANXIETY DISORDERS Status: Chronic Priority: Medium Annotation/Comment:: Stable by history. Previous history of alcohol abuse with normal alcohol level today. (11) Osteoarthritis SNOMED Code(s): 043562980 Code(s): M19.90 - UNSPECIFIED OSTEOARTHRITIS, UNSPECIFIED SITE Status: Chronic Priority: Medium Annotation/Comment:: Stable by history with distant history of gout. Qualifiers: Osteoarthritis location: multiple joints Osteoarthritis type: primary Qualified Code(s): M15.0 - Primary generalized (osteo)arthritis (12) Hypothyroidism (acquired) SNOMED Code(s): 351550924 Code(s): E03.9 - HYPOTHYROIDISM, UNSPECIFIED Status: Chronic Priority: Medium Annotation/Comment:: Currently under therapy. - Problem List Review Problem List Initiated/Reviewed/Updated: Yes - My Orders Last 24 Hours: My Active Orders 04/25/18 00:37 Peripheral IV Care [RC] . DIRECTED Abdomen Series w Chest 1V [CR] Stat OCCULT BLOOD DIAGNOSTIC [OP] Stat Obtain Past Medical Record [OM.PC] Urgent Peripheral IV Insertion Adult [OM.PC] Stat Resuscitation Status Stat - Assessment/Plan Last 24 Hours: My Active Orders 04/25/ 00:37 Peripheral IV Care [RC] . DIRECTED Abdomen Series w Chest 1V [CR] Stat OCCULT BLOOD DIAGNOSTIC [OP] Stat Obtain Past Medical Record [OM.PC] Urgent Peripheral IV Insertion Adult [OM.PC] Stat Resuscitation Status Stat Assessment:: As above Plan: As above. Extensive precautions were given to the patient, who is in agreement with the treatment plan. 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
[2018-04-25] MEDS: Pantoprazole 40 MG Vial IVPUSH ONE (01:02)
[2018-04-25] MEDS: Sodium Chloride 0.9% 10 ML Syringe FLUSH PRN (01:02)
[2018-04-25] MEDS: Lactated Ringers 1,000 ML IV ONE (01:02)
[2018-04-25] MEDS: Ondansetron 4 MG/2 ML SDV IVPUSH ONE (01:02)
[2018-04-25] MEDS: Famotidine 20 MG/2 ML SDV IVPUSH ONE (01:02)
[2018-04-25] MEDS: Lactated Ringers 1,000 ML IV SCH (02:07)
[2018-04-25 02:08] VITALS: BP 138/88
== END 2018-04-25 02:23 ==
LOC: LL.ED 00:17
DX: J43.1 Panlobular emphysema (principal); E78.2 Mixed hyperlipidemia; M15.0 Primary generalized (osteo)arthritis; K85.80 Other acute pancreatitis without necrosis or infection; E78.00 Pure hypercholesterolemia, unspecified; I10 Essential (primary) hypertension; E11.42 Type 2 diabetes mellitus with diabetic polyneuropathy; E03.9 Hypothyroidism, unspecified; F17.210 Nicotine dependence, cigarettes, uncomplicated; E87.1 Hypo-osmolality and hyponatremia; G47.30 Sleep apnea, unspecified; E83.42 Hypomagnesemia; N28.9 Disorder of kidney and ureter, unspecified; F41.8 Other specified anxiety disorders; Z88.8 Allergy status to other drugs, medicaments and biological substances; Z79.899 Other long term (current) drug therapy; Z79.84 Long term (current) use of oral hypoglycemic drugs; Z79.4 Long term (current) use of insulin
CPT/HCPCS: 36415; 74022; 80053; 82150; 82272; 83605; 83690; 83735; 84550; 85025; 85610; 85730; 96361; 96374; 96375; 99285; C9113; G0480; J2405; J7050; J7120; S0028

== ENCOUNTER 2019-08-22 13:46 | Emergency (ER) | payer MEDICARE ==
[2019-08-22] MEDS: Sodium Chloride 0.9% 10 ML Syringe FLUSH PRN ×2 (14:15→17:03)
[2019-08-22] MEDS: Sodium Chloride 0.9% 1,000 ML IV SCH ×2 (14:15→18:55)
[2019-08-22 14:35] LABS: CHLORIDE,CL 104 mmol/L (98-107); SODIUM,NA 136 mmol/L (136-145)
--- NOTE | 2019-08-22 14:41 | EDM.PDOC ---
ED HPI GENERAL MEDICAL PROBLEM - General Chief Complaint: Abdominal Pain Stated Complaint: n/v, abdominal pain Time Seen by Provider: 08/22/19 13:49 Source of Information: Reports: Patient, RN History Limitations: Reports: No Limitations - History of Present Illness INITIAL COMMENTS - FREE TEXT/NARRATIVE: Patient is a 64-year-old gentleman who [facility] chief complaint abdominal pain dry heaves since earlier today he does have a history of pancreatitis which he has been admitted multiple times. Onset: Today Duration: Hour(s):, Getting Worse Location: Reports: Abdomen Quality: Reports: Ache, Stabbing Severity: Moderate Improves with: Reports: Rest Worsens with: Reports: Eating Context: Reports: Sick Contact Associated Symptoms: Reports: Nausea/Vomiting, Weakness Treatments FRUIT GRADER: Reports: Acetaminophen - Related Data Allergies Allergy/AdvReac Type Severity Reaction Status Date / Time tuberculin, purified protein Allergy Redness Verified 08/22/19 14:25 deriva Home Meds: Home Meds Acetaminophen [Tylenol Extra Strength] 1,000 mg PO TID@08,16,20 11/13/13 [ History] Cholecalciferol (Vitamin D3) [Vitamin D3] 2,000 unit PO DAILY 11/13/13 [History] Docusate Sodium [Colace] 100 mg PO DAILY PRN 11/13/13 [History] Folic Acid 1 mg PO QAM 11/13/13 [History] Levothyroxine 25 mcg PO DAILY 11/13/13 [History] Lisinopril [Prinivil] 40 mg PO DAILY 11/13/13 [History] Sertraline [Zoloft] 100 mg PO DAILY 11/13/13 [History] Thiamine [Vitamin B-1] 100 mg PO DAILY 11/13/13 [History] amLODIPine [Norvasc] 5 mg PO BEDTIME 11/13/13 [History] atorvaSTATin [Lipitor] 10 mg PO BEDTIME 11/13/13 [History] guaiFENesin/Dextromethorphan [Tussin Dm Syrup] 10 ml PO ASDIRECTED PRN 11/13/13 [History] Budesonide/Formoterol [Symbicort 160-4.5 MCG] 1 puff INH Q12H 02/19/15 [History] Dorzolamide [Trusopt 2% Ophth Soln] 1 drop EYEBOTH Q12H 02/19/15 [History] Atenolol [Tenormin] 25 mg PO Q12H 08/31/17 [History] Cetirizine [ZyrTEC] 10 mg PO BEDTIME 08/31/17 [History] Fenofibrate,Micronized [Fenofibrate] 200 mg PO BEDTIME 08/31/17 [History] Gabapentin [Neurontin] 600 mg PO TID@08,16,20 08/31/17 [History] Insulin Glargine,Hum.Rec.Anlog [Lantus Solostar] 22 unit SQ DAILY 08/31/17 [ History] Insulin Glargine,Hum.Rec.Anlog [Lantus Solostar] 76 unit SQ BEDTIME 08/31/17 [ History] Petrolatum,White [Petroleum Jelly] 1 applic NASBOTH ASDIRECTED PRN 08/31/17 [ History] Albuterol/Ipratropium [DuoNeb 3.0-0.5 MG/3 ML] 1 vial INH Q4H PRN 04/25/18 [ History] Aspirin [Halfprin] 81 mg PO DAILY 09/21/18 [History] Bimatoprost [Lumigan 0.03% Ophth Soln] 1 drop EYEBOTH BEDTIME 09/21/18 [History] Insulin Aspart [NovoLOG] 10 unit PO BID@08,16 09/21/18 [History] Loperamide HCl [Imodium A-D] 2 - 4 mg PO ASDIRECTED PRN MDD 16 09/21/18 [History ] Methyl Salicylate/Menthol [Thera-Gesic Plus] 85 gm TP QID PRN 09/21/18 [History] Calcium Carbonate [Tums Extra Strength] 2 tab PO BID PRN 08/22/19 [History] Clopidogrel [Plavix] 1 tab PO DAILY 08/22/19 [History] Methyl Salicylate/Menthol [Thera-Gesic Analgesic] 1 applic TOP BEDTIME 08/22/19 [History] Potassium Chloride [Klor-Con M20] 20 meq PO DAILY 08/22/19 [History] Triamcinolone Acetonide [Triamcinolone Acetonide 0.1% Crm] 1 applic TOP BID PRN 08/22/19 [History] Past Medical History HEENT History: Reports: Allergic Rhinitis, Cataract, Glaucoma, Hard of Hearing, Impaired Vision, Other (See Below). Denies: Macular Degeneration, Retinal Detachment Other HEENT History: Patient wears bifocals. Mild bilateral presbycusis with no current therapy. Nasal septum deviation. Cardiovascular History: Reports: Aneurysm, High Cholesterol, Hypertension, PVD, Other (See Below). Denies: Afib, Arrhythmia, Blood Clots/VTE/DVT, CAD, Heart Failure, GA, Syncope Other Cardiovascular History: Thoracic aortic aneurysm Respiratory History: Reports: Bronchitis, Recurrent, COPD, Pulmonary Fibrosis, Sleep Apnea, Other (See Below). Denies: Asthma, PE, Pneumothorax Other Respiratory History: No current CPAP use. Gastrointestinal History: Reports: Bowel Obstruction, Chronic Constipation, Chronic Diarrhea, Diverticulosis, GERD, Hemorrhoids, Hiatal Hernia, Pancreatitis , Other (See Below). Denies: Celiac Disease, Cholelithiasis, Cirrhosis, Colon Polyp, GI Bleed, Hepatitis, Inflammatory Bowel Disease, Irritable Bowel Syndrome , PUD Other Gastrointestinal History: History of recurrent pancreatitis with pancreatic pseudocyst with last episode April 1018. Also on 08/31/17 and . Fatty liver with secondary LFTs elevation. Gilbert's syndrome. History of recurrent abdominal ileus. Multiple ventral abdominal fatty hernias. Splenic infarction. Dysphagia. Genitourinary History: Reports: BPH, Chronic Renal Insuffiency, Diabetic Nephropathy, Other (See Below). Denies: Acute Renal Failure, Renal Calculus, STD, Urinary Incontinence, UTI, Recurrent Other Genitourinary History: Bladder diverticuli by CT scan. Right renal cysts by ultrasound in 2017. Musculoskeletal History: Reports: Arthritis, Back Pain, Chronic, Gout, Osteoarthritis, Other (See Below). Denies: Amputation, Fracture, RA, SLE Other Musculoskeletal History: Scoliosis Neurological History: Reports: Neuropathy, Diabetic, Neuropathy, Peripheral. Denies: Alzheimers Disease, Cerebral Aneurysms, Concussion, CVA, Headaches, Chronic, Head Trauma, Migraines, MS, Parkinson's, Seizure, TIA Psychiatric History: Reports: Addiction, Anxiety, Depression, Emotional Problems , Psych Hospitalization(s), Suicide Attempt, Suicidal Ideation, Other (See Below ). Denies: Abuse, Victim of, ADD, ADHD, Alzheimers Disease, Dementia, PTSD Other Psychiatric History: transvestic fetishism, history ETOH dependence Endocrine/Metabolic History: Reports: Diabetes, Type II, Hypothyroidism, IDDM, Obesity/BMI 30+, Vitamin D Deficiency, Other (See Below). Denies: Diabetes, Type I, Diabetes Mellitus, Type 3c Other Endocrine/Metabolic History: Hyponatremia and hypokalemia. Hematologic History: Reports: Anemia, Folic Acid. Denies: Blood Transfusion(s) , Iron Deficiency Immunologic History: Reports: None. Denies: AIDS, HIV, SLE Dermatologic History: Reports: Venous Stasis Dermatitis, Other (See Below). Denies: Eczema, Psoriasis Other Dermatologic History: Lichen Simplex Chronicus, follicular disorder. Actinic keratosis. - Infectious Disease History Infectious Disease History: Reports: None. Denies: C-Difficile, Chicken Pox, Measles, Meningitis, Mononucleosis, MRSA, Mumps, Rheumatic Fever, Rubella, Scarlet Fever, Shingles, VRE - Past Surgical History Head Surgeries/Procedures: Reports: None HEENT Surgical History: Reports: Cataract Surgery, LASIK, Oral Surgery, Other ( See Below). Denies: Adenoidectomy, Eye Surgery, Laser Surgery, Myringotomy w Tube(s), Naso-Sinus Surgery, Tonsillectomy Other HEENT Surgeries/Procedures: bilateral cataract surgery in about 2015 with patient stating that he had LASIK surgery concurrently despite separate cataract procedures? Cardiovascular Surgical History: Reports: None. Denies: Varicose Respiratory Surgical History: Reports: None. Denies: Thoracentesis GI Surgical History: Reports: Colonoscopy, EGD, Hernia, Inguinal, Other (See Below). Denies: Appendectomy, Cholecystectomy, Hernia, Abdominal, Hernia Repair /Other Other GI Surgeries/Procedures: Colonoscopy and EGD in about 2012. Umbilical hernia repair in about 1999. Male Surgical History: Reports: None. Denies: Vasectomy Endocrine Surgical History: Reports: None Neurological Surgical History: Reports: None. Denies: C-Spine, Discectomy, Laminectomy, Lumbar Spine, Sacral Spine, Spinal Fusion, Thoracic Spine, Vertebroplasty Musculoskeletal Surgical History: Reports: None. Denies: Arthroscopic Procedure , Carpal Tunnel, Ganglion Cyst, Joint Replacement, ORIF, Shoulder Surgery Oncologic Surgical History: Reports: None Dermatological Surgical History: Reports: None - Past Imaging History Past Imaging History: Reports: CAT Scan (CT scan of the chest, abdomen, and pelvis on 02/16/15. Last CT of the abdomen and pelvis on 08/31/17.), Ultrasound ( Abdominal ultrasound on 01/17/17 area) Social & Family History - Caffeine Use Caffeine Use: Reports: Coffee (1 cup per day), Soda (2 sodas per day). 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) ED ROS GENERAL - Review of Systems Review Of Systems: See Below Constitutional: Reports: Other (Nausea and dry heaves) HEENT: Reports: No Symptoms Respiratory: Reports: No Symptoms Cardiovascular: Reports: No Symptoms Endocrine: Reports: High Glucose GI/Abdominal: Reports: Abdominal Pain, Nausea : Reports: No Symptoms Musculoskeletal: Reports: No Symptoms Skin: Reports: No Symptoms ED EXAM, GENERAL - Physical Exam Exam: See Below Exam Limited By: No Limitations General Appearance: Alert, WD/WN, No Apparent Distress Ears: Normal External Exam, Normal Canal, Hearing Grossly Normal, Normal TMs Nose: Normal Inspection, Normal Mucosa, No Blood Throat/Mouth: Normal Inspection, Normal Lips, Normal Teeth, Normal Gums, Normal Oropharynx, Normal Voice, No Airway Compromise Head: Atraumatic, Normocephalic Neck: Normal Inspection, Supple, Non-Tender, Full Range of Motion Respiratory/Chest: No Respiratory Distress, Lungs Clear, Normal Breath Sounds, No Accessory Muscle Use, Chest Non-Tender Cardiovascular: Normal Peripheral Pulses, Regular Rate, Rhythm, No Edema, No Gallop, No JVD, No Murmur, No Rub, Other (Syncope episode secondary to dry heaves most palpable vasovagal reaction) GI/Abdominal: Soft, Tender (Male) Exam: Deferred Rectal (Males) Exam: Deferred Back Exam: Decreased Range of Motion Extremities: Normal Inspection, Normal Range of Motion, Non-Tender, Normal Capillary Refill, No Pedal Edema Neurological: Alert, Oriented, CN II-XII Intact, Normal Cognition, Normal Gait, Normal Reflexes, No Motor/Sensory Deficits Psychiatric: Normal Affect, Normal Mood Skin Exam: Warm, Dry, Intact, Normal Color, No Rash Course - Vital Signs Last Recorded V/S: Last Vital Signs Temp 97.2 F 08/22/19 15:02 Pulse 81 08/22/19 15:15 Resp 13 08/22/19 15:15 BP 130/62 08/22/19 15:15 Pulse Ox 93 L 08/22/19 15:15 - Orders/Labs/Meds Orders: Active Orders 24 hr Category Date Time Status Cardiac Monitoring [RC] . DIRECTED Care 08/22/19 14:34 Active EKG Documentation Completion [RC] ASDIRECTED Care 08/22/19 15:23 Active Abdomen Pelvis w Cont [CT] Stat Exams 08/22/19 14:42 Ordered Head wo Cont [CT] Stat Exams 08/22/19 15:27 Taken HYDROmorphone [Dilaudid] Med 08/22/19 16:55 Once 0.5 mg IVPUSH ONETIME ONE Sodium Chloride 0.9% [Normal Saline] 1,000 ml Med 08/22/19 14:15 Active IV ASDIRECTED Sodium Chloride 0.9% [Saline Flush] Med 08/22/19 14:03 Active 10 ml FLUSH ASDIRECTED PRN Saline Lock Insert [OM.PC] Stat Oth 08/22/19 14:03 Ordered EKG 12 Lead [EK] Stat Ther 08/22/19 15:22 Ordered Medication Orders Sodium Chloride (Normal Saline) 1,000 mls @ 250 mls/hr IV ASDIRECTED KATHLEEN Last Admin: 08/22/19 14:15 Dose: 250 mls/hr Sodium Chloride (Saline Flush) 10 ml FLUSH ASDIRECTED PRN PRN Reason: Keep Vein Open Last Admin: 08/22/19 14:15 Dose: 10 ml Labs: Laboratory Tests 08/22/19 08/22/19 08/22/19 Range/Units 14:07 14:07 14:07 WBC 8.7 (4.0-10.2) K/uL RBC 4.19 L (4.33-5.41) M/uL Hgb 12.9 L (13.1-16.8) g/dL Hct 38.5 L (39.0-49.0) % MCV 91.9 D (84.0-98.0) fL MCH 30.8 (28.2-33.3) pg MCHC 33.5 (31.7-36.0) g/dL RDW 13.9 (11.2-14.1) % Plt Count 103 L (150-350) K/uL Neut % (Auto) 80.0 (45.0-80.0) % Lymph % (Auto) 12.9 (10.0-50.0) % [place] % (Auto) 6.1 (2.0-14.0) % Eos % (Auto) 0.9 (0.0-5.0) % Baso % (Auto) 0.1 (0.0-2.0) % Neut # (Auto) 6.93 (1.40-7.00) K/uL Lymph # (Auto) 1.12 (0.50-3.50) K/uL [place] # (Auto) 0.53 (0.00-1.00) K/uL Eos # (Auto) 0.08 (0.00-0.50) K/uL Baso # (Auto) 0.01 (0.00-0.20) K/uL Sodium 136 (136-145) mmol/L Potassium 4.1 (3.5-5.1) mmol/L Chloride 104 (98-107) mmol/L Carbon Dioxide 22.1 (21.0-32.0) mmol/L BUN 26 H (7-18) mg/dL Creatinine 1.18 H (0.51-1.17) mg/dL Est Cr Clr Drug Dosing TNP Estimated GFR (MDRD) > 60 mL/min Glucose 255 H (74-106) mg/dL Calcium 8.7 (8.5-10.1) mg/dL Total Bilirubin 0.4 (0.2-1.0) mg/dL AST 13 L (15-37) U/L ALT 32 (12-78) U/L Alkaline Phosphatase 97 (46-116) IU/L Troponin I 0.000 (0.000-0.056) ng/mL Total Protein 6.9 (6.4-8.2) g/dL Albumin 3.9 (3.4-5.0) g/dL Amylase 185 H (25-115) U/L Lipase 3482 H (73-393) U/L Meds: Medications Generic Name Dose Route Start Last Admin Trade Name Freq PRN Reason Stop Dose Admin Sodium Chloride 1,000 mls @ 250 mls/hr 08/22/19 14:15 08/22/19 14:15 Normal Saline IV 250 mls/hr ASDIRECTED KATHLEEN Administration Sodium Chloride 10 ml 08/22/19 14:03 08/22/19 14:15 Saline Flush FLUSH 10 ml ASDIRECTED PRN Administration Keep Vein Open Discontinued Medications Generic Name Dose Route Start Last Admin Trade Name Freq PRN Reason Stop Dose Admin Iopamidol 100 ml 08/22/19 15:14 Isovue-300 (61%) IVPUSH 08/22/19 15:15 ONETIME ONE Ondansetron HCl 4 mg 08/22/19 14:44 08/22/19 14:49 Zofran IVPUSH 08/22/19 14:45 4 mg ONETIME ONE Administration Ondansetron HCl Confirm 08/22/19 14:44 08/22/19 14:49 Zofran Administered 08/22/19 14:45 Not Given Dose 4 mg .ROUTE .STK-MED ONE Promethazine HCl 25 mg 08/22/19 15:08 08/22/19 15:13 Phenergan IM 08/22/19 15:09 25 mg ONETIME ONE Administration Promethazine HCl Confirm 08/22/19 15:08 08/22/19 15:14 Phenergan Administered 08/22/19 15:09 Not Given Dose 25 mg .ROUTE .STK-MED ONE Departure - Departure Time of Disposition: 17:13 Disposition: DC/[facility] Condition: Fair Clinical Impression: Episode of syncope Pancreatitis Qualifiers: Chronicity: acute Pancreatitis type: other Acute pancreatitis complication: unspecified Qualified Code(s): K85.80 - Other acute pancreatitis without necrosis or infection - Discharge Information *PRESCRIPTION DRUG MONITORING PROGRAM REVIEWED*: No *COPY OF PRESCRIPTION DRUG MONITORING REPORT IN PATIENT AN AM: No Referrals: Martha Negro MD [Primary Care Provider] - Forms: ED Department Discharge Care Plan Goals: Patient is a 64-year-old who [facility] secondary to nausea and abdominal discomfort patient has history of pancreatitis in the past and today while in the ER had multiple episodes of syncope at this time troponins were negative head CT was negative we [facility] for his pancreatitis and possible cardiac workup for pacemaker recent a septated at the [facility] will transfer - My Orders Last 24 Hours: My Active Orders 08/22/19 14:03 Sodium Chloride 0.9% [Saline Flush] 10 ml FLUSH ASDIRECTED PRN Saline Lock Insert [OM.PC] Stat 08/22/19 14:15 Sodium Chloride 0.9% [Normal Saline] 1,000 ml IV ASDIRECTED 08/22/19 14:34 Cardiac Monitoring [RC] . DIRECTED 08/22/19 14:42 Abdomen Pelvis w Cont [CT] Stat 08/22/19 15:22 EKG 12 Lead [EK] Stat 08/22/19 15:23 EKG Documentation Completion [RC] ASDIRECTED 08/22/19 15:27 Head wo Cont [CT] Stat 08/22/19 16:55 HYDROmorphone [Dilaudid] 0.5 mg IVPUSH ONETIME ONE - Assessment/Plan Last 24 Hours: My Active Orders 08/22/19 14:03 Sodium Chloride 0.9% [Saline Flush] 10 ml FLUSH ASDIRECTED PRN Saline Lock Insert [OM.PC] Stat 08/22/19 14:15 Sodium Chloride 0.9% [Normal Saline] 1,000 ml IV ASDIRECTED 08/22/19 14:34 Cardiac Monitoring [RC] . DIRECTED 08/22/19 14:42 Abdomen Pelvis w Cont [CT] Stat 08/22/19 15:22 EKG 12 Lead [EK] Stat 08/22/19 15:23 EKG Documentation Completion [RC] ASDIRECTED 08/22/19 15:27 Head wo Cont [CT] Stat 08/22/19 16:55 HYDROmorphone [Dilaudid] 0.5 mg IVPUSH ONETIME ONE
[2019-08-22] MEDS ORDERED: Ondansetron 4 MG/2 ML SDV ONE (14:44)
[2019-08-22] MEDS ORDERED: Ondansetron 4 MG/2 ML SDV IVPUSH ONE (14:44)
[2019-08-22] MEDS ORDERED: Promethazine 25 MG/ML SDV ONE (15:08)
[2019-08-22] MEDS ORDERED: Promethazine 25 MG/ML SDV IM ONE (15:08)
[2019-08-22] MEDS ORDERED: Iopamidol 612 MG/ML 100 ML Bottle IVPUSH ONE (15:14)
[2019-08-22] MEDS ORDERED: HYDROmorphone 0.5 MG/0.5 ML Syringe IVPUSH ONE (16:55)
[2019-08-22 18:58] VITALS: BP 149/90; PULSE 103
== END 2019-08-22 19:20 ==
LOC: LL.ED 13:46
DX: K85.80 Other acute pancreatitis without necrosis or infection (principal); R55 Syncope and collapse; I12.9 Hypertensive chronic kidney disease with stage 1 through stage 4 chronic kidney disease, or unspecified chronic kidney disease; E11.22 Type 2 diabetes mellitus with diabetic chronic kidney disease; N18.9 Chronic kidney disease, unspecified; E11.42 Type 2 diabetes mellitus with diabetic polyneuropathy; E78.00 Pure hypercholesterolemia, unspecified; J44.9 Chronic obstructive pulmonary disease, unspecified; E11.36 Type 2 diabetes mellitus with diabetic cataract; H26.9 Unspecified cataract; E03.9 Hypothyroidism, unspecified; H40.9 Unspecified glaucoma; E66.9 Obesity, unspecified; F32.9 Major depressive disorder, single episode, unspecified; F41.9 Anxiety disorder, unspecified; Z79.4 Long term (current) use of insulin; Z79.02 Long term (current) use of antithrombotics/antiplatelets; Z79.51 Long term (current) use of inhaled steroids; Z79.82 Long term (current) use of aspirin; Z79.890 Hormone replacement therapy; Z79.899 Other long term (current) drug therapy; Z91.048 Other nonmedicinal substance allergy status
CPT/HCPCS: 36415; 70450; 80053; 82150; 83690; 84484; 85025; 93005; 96360; 96361; 99285; J1170; J2405; J2550; J7030